=== PATIENT | female | born 1945 | race Caucasian/White ===

== ENCOUNTER → 2018-10-30 | Outpatient (REF) | payer MEDICARE ==
[~2018-10-30] MED LIST: ALENDRONATE70 MG PO; ATORVASTATIN CA10 MG PO; B12 PO; BACLOFEN10 MG PO; BL IBUPROFEN200 MG PO; CO Q-10100 MG OR; FLUARIX QUADRIV1 INJ IM; FLUTICASONE50 MCG; IRON CHEWS PO; IRON PO; LO-DOSE ASA81 MG OR; MEDDOSEPAK PO; METOPROL TAR25 M1 PO; OMEPRAZOLE20 M1 PO; PRILOSEC40 MG PO; PROTONIX20 MG PO; RED YEAST RICE EXTRA; SERTRALINE HCL50 MG PO; TET/DIP TOX1 ML IM; TIZANIDINE HCL4 MG PO; TRAMADOL HCL50 MG PO; TYLENOL325 MG PO; VICODIN1 TAB PO; VITAMIN D2000 UNI1 PO; WARFARIN5 MG PO; ZOLOFT25 MG PO; ZOLOFT50 MG PO; ZYRTEC10 M1 PO
[2018-10-30 10:20] LABS: HEMATOCRIT 36.7 % (37.0-47.0); HEMOGLOBIN 11.8 g/dl (12.0-16.0); IMMATURE GRANULOCYTES 0.2 % (0.0-5.0); MEAN CELL VOLUME 91.8 fL CALC (80.0-100.0); MEAN CORPUSCULAR HGB 29.5 pG CALC (26.0-32.0); MEAN CORPUSCULAR HGB CONC 32.2 g/L CALC (32.0-36.0); NEUT# 3.17 thou/uL (2.00-7.15); RED CELL DISTRI WIDTH 12.9 % (11.5-15.5)
== END | disposition home or self-care (01) ==
LOC: LAB 09:07
PROVIDERS: ATTEND Internal Medicine Pulmonary Disease
DX: J47.9 Bronchiectasis, uncomplicated (principal)

== ENCOUNTER 2019-10-17 | Day surgery (SDC) | payer MEDICARE ==
[~2019-10-17] MED LIST changes: +ARNUITY EL50 MCG/ACT; +B-12 TR1000 MCG PO; +BIOTIN EXTR10000 MCG PO; +BIOTIN XX; +CALCI10 XX; +CALCIUM250 M1 PO; +EQ ALLERGY50 MCG/ACT; +FOLIC ACID1 MG PO; +FOLIC ACID400 MC1 PO; +LIPITOR20 M1 PO; +MAGNESI12 XX; +MAGNESIUM250 M1 PO; +METRONIDAZOL250 MG PO; +MUCINEX1200 MG PO; +NORVASC5 M1 PO; +OMEPRAZOLE20 MG PO; +SINGULAIR10 MG PO; +VITAMI16 PO; +VITAMIN C500 M4 PO; +VITAMIN D320 MCG PO; +VITAMIN D7 XX; +[UNRECOGNIZED DRUG - OTHER] XX
[2019-10-28] MEDS ORDERED: PANTOPRAZOLE SO40 M1 PO (13:37)
== END 2019-10-17 09:23 | disposition home or self-care (01) ==
PROC: 0DB98ZX Excision of Duodenum, Via Natural or Artificial Opening Endoscopic, Diagnostic (ICD-10-PCS; principal; 2019-10-17)
PROC: 0DB68ZX Excision of Stomach, Via Natural or Artificial Opening Endoscopic, Diagnostic (ICD-10-PCS; 2019-10-17)
PROC: 0DB58ZX Excision of Esophagus, Via Natural or Artificial Opening Endoscopic, Diagnostic (ICD-10-PCS; 2019-10-17)
PROC: 0DJD8ZZ Inspection of Lower Intestinal Tract, Via Natural or Artificial Opening Endoscopic (ICD-10-PCS; 2019-10-17)
DX: K21.0 Gastro-esophageal reflux disease with esophagitis (principal); K29.80 Duodenitis without bleeding; K44.9 Diaphragmatic hernia without obstruction or gangrene; K29.70 Gastritis, unspecified, without bleeding; Z12.11 Encounter for screening for malignant neoplasm of colon; K57.30 Diverticulosis of large intestine without perforation or abscess without bleeding; I10 Essential (primary) hypertension; Z86.010 Personal history of colon polyps; Z87.11 Personal history of peptic ulcer disease; Z79.899 Other long term (current) drug therapy
CPT/HCPCS: 43239; G0105

== ENCOUNTER 2022-01-30 14:31 | Emergency (ER) | payer MEDICARE ==
[2022-01-30] VITALS (8 sets, daily range): BP systolic 132–146; BP diastolic 56–80
[~2022-01-30] VITALS: Ht 160 cm; Wt 85.0 kg
[~2022-01-30 14:31] MED LIST changes: +PANTOPRAZOLE SO40 M1 PO
== END 2022-01-30 18:42 | disposition home or self-care (01) ==
LOC: ED 14:31
DX: M79.604 Pain in right leg (principal); I10 Essential (primary) hypertension